=== PATIENT | female | born 1985 | race Caucasian/White ===

== ENCOUNTER 2019-03-20 17:13 | Inpatient (IN) | payer BC ==
[~2019-03-20] VITALS: Ht 177.8 cm; Wt 77.6 kg
[2019-03-20 17:35] VITALS: BP_SYST 143
[2019-03-20] MEDS ORDERED: NACL 0.9% 1,000 ML IV ONE (17:50)
--- NOTE | 2019-03-20 17:53 | NUR ---
ER at bedside examining patient.Pt reports Last meal at 1200
--- NOTE | 2019-03-20 17:53 | NUR ---
Patient to ER bed 1 to gown for evaluation. Side rails up.
[2019-03-20] MEDS ORDERED: cefTRIAXone 1 GM IVPB PREMIX 50 ML IV ONE (18:00)
[2019-03-20] MEDS ORDERED: NS 1000 ML IV.SOLN IV ONE (18:00)
[2019-03-20] MEDS ORDERED: ONDANSETRON HCL 4 MG/2 ML VIAL IVP ONE (18:00)
[2019-03-20] MEDS ORDERED: MORPHINE 4 MG/ML INJ. SYRINGE IVP ONE ×2 (18:00→19:15)
--- NOTE | 2019-03-20 18:00 | NUR ---
PT ARRIVES FROM HOME W/ C/O ABD PAIN 11/24, n/V. PT STATES HAVING DIARRHEA FOR 5 DAYS.
--- NOTE | 2019-03-20 18:15 | NUR ---
URINE SAMPLE COLLECTED AND SENT TO THE LAB.
--- NOTE | 2019-03-20 18:18 | NUR ---
# 20 gauge angiocath placed to lac. Use of asceptic technique. Opsite placed over site. Blood return noted. Blood for lab drawn from site. Flushed with 10 cc of normal saline. No evidence of infiltration noted. Patient tolerated well.
--- NOTE | 2019-03-20 18:20 | NUR ---
MEDICATED THE PT W/ MORPHINE, AND ZOFRAN PER MD ORDER. WILL REASSESS.
[2019-03-20 18:21] LABS: BASOPHILS # (AUTO) 0.1 K/uL (0.0-0.2); BASOPHILS % (AUTO) 0.7 % (0.0-2.0); EOSINOPHILS # (AUTO) 0.1 K/uL (0.0-0.4); EOSINOPHILS % (AUTO) 1.1 % (0.0-4.0); HEMATOCRIT 40.7 % (36-48); HEMOGLOBIN 13.7 g/dL (12.0-16.0); LYMPHOCYTES # (AUTO) 1.5 K/uL (1.0-5.5); LYMPHOCYTES % (AUTO) 20.9 % (20.5-51.5); MEAN CORPUSCULAR HEMOGLOBIN 31 pg (27-31); MEAN CORPUSCULAR HGB CONC 34 % (32-36); MEAN CORPUSCULAR VOLUME 93 fL (79.0-98.0); MONOCYTES # (AUTO) 0.7 K/uL (0.0-1.0); MONOCYTES % (AUTO) 10.2 % (1.7-9.3); NEUTROPHILS # (AUTO) 4.7 K/uL (1.8-7.7); NEUTROPHILS % (AUTO) 67.1 % (40.0-70.0); PLATELET COUNT (AUTO) 174 K/uL (130-430); RED BLOOD CELL COUNT(AUTO) 4.37 MIL/uL (4.2-6.2); RED CELL DISTRIBUTION WIDTH 13.4 % (9.0-15.0)
--- NOTE | 2019-03-20 18:40 | NUR ---
Patient transported to radiology via , accompanied by indian trader.
[2019-03-20 18:42] LABS: PROTHROMBIN TIME 9.8 SECS (9.5-12.5)
[2019-03-20 18:43] LABS: CALCIUM 8.7 mg/dL (8.4-11.0); CREATININE 0.75 mg/dL (0.55-1.30)
[2019-03-20 18:48] LABS: ALBUMIN 4.2 g/dL (3.4-4.8); TOTAL BILIRUBIN 0.6 mg/dL (0.0-1.0)
--- NOTE | 2019-03-20 19:10 | NUR ---
report given to Emeli CHRISTIANSON. pt is in stable condition
[2019-03-20] MEDS ORDERED: NORE5TAB3 PO (19:50)
[2019-03-20] MEDS ORDERED: PREN-128 PO (19:50)
--- NOTE | 2019-03-20 19:50 | NUR ---
Medication reconciliation completed with information provided by patient. Any prior medication reconciliation on file was reviewed and corrected.
[2019-03-20 19:55] LABS: BILIRUBIN,URINE NEGATIVE (NEGATIVE); BLOOD, URINE NEGATIVE (NEGATIVE); CLARITY/URINE CLEAR (CLEAR); COLOR,URINE YELLOW (YELLOW); GLUCOSE,URINE NEGATIVE (NEGATIVE); KETONES,URINE NEGATIVE (NEGATIVE); LEUKOCYTE ESTERASE ,URINE NEGATIVE (NEGATIVE); NITRITE, URINE NEGATIVE (NEGATIVE); PROTEIN URINE NEGATIVE (NEGATIVE); UROBILINOGEN,URINE 0.2 (0.2-1.0)
[2019-03-20] MEDS ORDERED: KCL 20 mEq in 100 mL (PREMIX) 100 ML IV ONE (20:00)
--- NOTE | 2019-03-20 20:06 | NUR ---
Patient will be admitted to care of CHUCK. Admitted to TELEMETRY unit. Awaiting bed placement. Belongings list completed. Complete and up to date summary report printed. SBAR report to be given at bedside with opportunity for questions.
--- NOTE | 2019-03-20 20:51 | NUR ---
Transfer to Telemetry bed 111A via ACLS protocol. Licensed nurse present. IV present no signs or symptoms of infiltration.
--- NOTE | 2019-03-20 20:57 | NUR ---
Dr. Miranda at bedside examining patient.
--- NOTE | 2019-03-20 21:15 | NUR ---
MD DR. HARDEN AT BEDSIDE ASSESSED PATIENT FOR SURGICAL CONSULT. PLAN OF CARE DISCUSSED WITH PATIENT AND .
--- NOTE | 2019-03-20 21:25 | NUR ---
ADMISSION NOTE Received patient from ER via [facility] under the care of Dr. Smith. Patient admitted with diagnosis of Abdominal Pain . Patient is awake, alert, oriented X 4. Patient oriented to hospital room, call light, toileting, pain management and safety-teach back done. Patient informed that her nurse will Rama CHRISTIANSON and that her room number is 111A. Call light within reach. Will continue to monitor patient condition.
[2019-03-20 21:46] VITALS: BP_SYST 127
[2019-03-20] MEDS ORDERED: KCL 20 mEq in D5NS 1000 mL 1,000 ML IV ONE (22:11)
[2019-03-20] MEDS: KCL 20 mEq in D5NS 1000 mL 1,000 ML IV SCH (22:14)
[2019-03-20] MEDS ORDERED: ONDANSETRON HCL 4 MG/2 ML VIAL IVP PRN (22:30)
[2019-03-20] MEDS: MORPHINE 2 MG/ML INJ. SYRINGE IVP PRN (22:40)
--- NOTE | 2019-03-20 22:40 | NUR ---
PAIN MGT PATIENT MEDICATED WITH MORPHINE FOR C/O ABDOMINAL PAIN. VITAL SIGNS STABLE. ZOFRAN GIVEN PER PATIENT REQUEST.
[2019-03-20] MEDS ORDERED: NACL 0.9% 1,000 ML IV SCH (23:49)
[2019-03-20 23:58] VITALS: BP_SYST 127
[2019-03-21] MEDS ORDERED: ONDANSETRON HCL 4 MG/2 ML VIAL IVP PRN
[2019-03-21] MEDS ORDERED: ALBUTEROL SULFATE 0.083% 2.5 MG/3 ML VIAL.NEB INH PRN
[2019-03-21] MEDS ORDERED: ACETAMINOPHEN 325 MG TABLET PO PRN
--- NOTE | 2019-03-21 02:00 | NUR ---
ROUNDS PATIENT RESTING IN BED. NO DISTRESS NOTED. IVF INFUSING.
[2019-03-21 03:43] VITALS: BP_SYST 111
[2019-03-21] MEDS: MORPHINE 2 MG/ML INJ. SYRINGE IVP PRN (03:55)
--- NOTE | 2019-03-21 03:55 | NUR ---
PAIN MGT PATIENT MEDICATED WITH MORPHINE FOR C/O ABDOMINAL PAIN. VITAL SIGNS STABLE. DENIES NAUSEA AT THIS TIME.
--- NOTE | 2019-03-21 06:48 | NUR ---
CLOSING NOTES PATIENT RESTING IN BED NO DISTRESS NOTED. IVF INFUSING WITH IV LINE INTACT AND PATENT. PATIENT NEEDS ATTENDED.
[2019-03-21 07:09] LABS: BASOPHILS % (AUTO) 0.3 % (0.0-2.0); EOSINOPHILS # (AUTO) 0.1 K/uL (0.0-0.4); EOSINOPHILS % (AUTO) 1.3 % (0.0-4.0); HEMATOCRIT 31.5 % (36-48); HEMOGLOBIN 10.8 g/dL (12.0-16.0); LYMPHOCYTES # (AUTO) 2.2 K/uL (1.0-5.5); MEAN CORPUSCULAR HEMOGLOBIN 32 pg (27-31); MEAN CORPUSCULAR HGB CONC 34 % (32-36); MEAN CORPUSCULAR VOLUME 93 fL (79.0-98.0); MONOCYTES # (AUTO) 0.9 K/uL (0.0-1.0); MONOCYTES % (AUTO) 12.5 % (1.7-9.3); NEUTROPHILS # (AUTO) 3.8 K/uL (1.8-7.7); NEUTROPHILS % (AUTO) 53.9 % (40.0-70.0); PLATELET COUNT (AUTO) 141 K/uL (130-430); RED BLOOD CELL COUNT(AUTO) 3.38 MIL/uL (4.2-6.2); RED CELL DISTRIBUTION WIDTH 13.4 % (9.0-15.0)
--- NOTE | 2019-03-21 07:34 | NUR ---
INITIAL NOTE PT RESTING QUIETLY, BREATHING EVEN AND UNLABORED, PT ON ROOM AIR. IVF INFUSING WELL. CALL LIGHT WITHIN REACH, BED IN LOW AND LOCKED POSITION WITH BED ALARM ON.
[2019-03-21 08:00] VITALS: BP_SYST 111
[2019-03-21 08:36] LABS: ALBUMIN 2.6 g/dL (3.4-4.8); CREATININE 0.66 mg/dL (0.55-1.30); POTASSIUM 3.3 mmol/L (3.5-5.1); TOTAL BILIRUBIN 0.4 mg/dL (0.0-1.0)
--- NOTE | 2019-03-21 09:06 | NUR ---
DR. CHUCK OLIVA AT BEDSIDE EXAMINING PT. PT DENIES ANY PAIN OR DISCOMFORT AT THIS TIME. PT STATED SHE IS PASSING GAS. INFORMED MD PT K 3.3. AWARE. TO WAIT FOR DR. WORRELL TO COME SEE PT.
--- NOTE | 2019-03-21 09:30 | NUR ---
RN ROUNDS PT AWAKE, DENIES ANY ABDOMINAL PAIN AT THIS TIME. PT STATES SHE IS PASSING GAS AND TOLERATED BREAKFAST DIET WELL. WILL CONTINUE TO MONITOR.
[2019-03-21] MEDS: KCL 20 mEq in D5NS 1000 mL 1,000 ML IV SCH (10:23)
--- NOTE | 2019-03-21 10:26 | NUR ---
DR. HARDEN/DR. WORRELL SPOKE WITH DR. HARDEN VIA PHONE TO SEE IF MD WANTED THE CONSULT TO BE ORDERED FOR DR. WORRELL. SAID NO THAT DR. WORRELL IS AWARE AND WILL BE SEEING PT THIS MORNING. DR. HARDEN GAVE ME DR. JOSIH NUMBER TO FOLLOW UP WITH HIM. SPOKE WITH DR. WORRELL, INFORMED MD THAT PT IS DOING WELL THIS MORNING, NO ABDOMINAL PAIN, PT PASSING GAS AND TOLERATED FULL LIQUID DIET WELL. DR. WORRELL TO COME IN AROUND NOON TO SEE PT.
--- NOTE | 2019-03-21 11:07 | NUR ---
DR. WORRELL/RN ROUNDS MD AT BEDSIDE EXAMINING PT. INFORMED MD PT TOLERATED FULL LIQUID DIET WELL. PT DENIES ANY PAIN, OR VOMITING. MD TO CHANGE PT TO SOFT DIET FOR LUNCH AND DINNER AND SEE HOW SHE TOLERATES NEW DIET. NEW ORDERS RECEIVED, VERIFIED WITH READ BACK.
[2019-03-21 12:00] VITALS: BP_SYST 104
--- NOTE | 2019-03-21 13:00 | NUR ---
RN ROUNDS PT OFF IVF. PT DRINKING AND EATING. TOLERATING FOOD WELL. DENIES NAUSEA, OR VOMITING OR DIARRHEA. WILL CONTINUE TO MONITOR.
--- NOTE | 2019-03-21 15:00 | NUR ---
RN ROUNDS NO CHANGE IN ASSESSMENT, WILL CONTINUE TO MONITOR.
[2019-03-21 16:00] VITALS: BP_SYST 103
--- NOTE | 2019-03-21 17:50 | NUR ---
DR. WOODS SPOKE W/ MD VIA PHONE, INFORMED MD THAT PT WAS SEEN BY DR. WORRELL, PER DR. WORRELL PT IS CLEARED FOR DISCHARGE IF SHE TOLERATED LUNCH AND DINNER WELL. INFORMED MD THAT PT ATE LUNCH AND DINNER, TOLERATED WELL AND HAD BOWEL MOVEMENT TODAY. MD TO LOOK AT CHART AND PUT IN POSSIBLE DISCHARGE ORDERS.
[2019-03-21 17:59] VITALS: BP_SYST 103
[2019-03-21] MEDS ORDERED: POTASSIUM CHLORIDE 20 MEQ TAB.PRT.SR PO ONE (18:00)
--- NOTE | 2019-03-21 18:19 | NUR ---
DISCHARGE NOTE DISCHARGE INSTRUCTIONS AND PACKET WITH PT. PT DENIES ANY ABDOMINAL PAIN, NAUSEA, OR VOMITING. ALL BELONGINGS WITH PT. IV CATHETER REMOVED, CATHETER INTACT. ID HOSPITAL BAND REMOVED. EDUCATED PT ON USE AND SAFETY OF WHEELCHAIR ESCORT. PT VERBALIZED UNDERSTANDING. PT REFUSING WHEELCHAIR ESCORT. PT AMBULATES WITH STEADY GAIT. MOTHER ESCORTED PT TO HOSPITAL PARKING LOT, MOTHER TO DRIVE PT HOME IN PRIVATE AUTO.
== END 2019-03-21 18:20 | disposition home or self-care (01) | DRG 392 ==
LOC: SED 17:13 → STU 19:57
PROVIDERS: ADMIT Internal Medicine Hospice and Palliative Medicine; ATTEND Internal Medicine Hospice and Palliative Medicine
DX: A08.4 Viral intestinal infection, unspecified (principal); K59.39 Other megacolon; E87.6 Hypokalemia; Z98.891 History of uterine scar from previous surgery; Z79.899 Other long term (current) drug therapy
CPT/HCPCS: 36415; 71045; 80053; 81003; 82150-TC; 83605; 83690-TC; 84484; 85025; 85610-TC; 85730-TC; 87040-TC; 93005; 96361; 96365; 96375; 96376; 99285; G0378; J0696; J2270; J2405; J3480; J7030